=== PATIENT | female | born 1990 | race Caucasian/White ===

== ENCOUNTER 2018-02-10 15:33 | Outpatient (CLI) | payer SELFPAY ==
[2018-02-10 01:31] LABS: BASOPHILS 0.4 % (0-2); EOSINOPHILS 1.3 % (0-7); HEMOGLOBIN 9.6 g/dL (12-16); IMMATURE GRANULOCYTES 0.4 % (0-5); MCH 29.8 pg (26.0-34.0); MCHC 33.1 g/dL (31.0-37.0); MCV 90.1 fL (80.0-100.0); MONOCYTES 10.2 % (2-11); NEUTROPHILS 59.7 % (40-80); PLATELET COUNT 356 10x3/uL (130-400); RBC 3.22 10x6/uL (4.00-5.40); RDW 13.5 % (11.5-14.5)
[2018-02-10 01:57] LABS: UDS - AMPHET NEGATIVE QUAL (NEGATIVE); UDS - BARB NEGATIVE QUAL (NEGATIVE); UDS - BENZO NEGATIVE QUAL (NEGATIVE); UDS - COCAINE NEGATIVE QUAL (NEGATIVE); UDS - OPIATE NEGATIVE QUAL (NEGATIVE); UDS - PCP NEGATIVE QUAL (NEGATIVE); UDS - THC POSITIVE QUAL (NEGATIVE)
[2018-02-10 02:16] LABS: APPEARANCE CLEAR (CLEAR); BILIRUBIN NEGATIVE (NEGATIVE); COLOR YELLOW (YELLOW); GLUCOSE NEGATIVE (NEGATIVE); KETONE NEGATIVE (NEGATIVE); NITRITE NEGATIVE (NEGATIVE); PROTEIN NEGATIVE (NEGATIVE); UROBILINOGEN NORMAL (NORMAL)
[2018-02-10 02:17] LABS: BACTERIA NONE SEEN /hpf (NONE SEEN); EPITHELIAL CELLS 0-5 /hpf (0-5); RED CELLS - URINE 0-5 /hpf (0-5); WHITE CELLS - URINE NSEEN /hpf (0-5)
[2018-02-11 07:29] LABS: RAPID PLASMA REAGIN Non Reactive (Non Reactive)
[2018-02-11 11:20] LABS: HEPATITIS C ANTIBODY <0.1 (0.0-0.9)
[2018-02-11 17:12] LABS: RUBELLA IGG <0.90 index (Immune >0.99)
[2018-02-12 10:19] LABS: HGB SOLUBILITY (SICKLE SCREEN) Negative (Negative)
[2018-03-17 00:21] VITALS: BMI 26.9
== END 2018-02-10 16:00 ==
LOC: D.LDO 15:33 → D.LD 15:33 → D.LDO 16:00
PROVIDERS: Obstetrics & Gynecology
DX: O26.853 Spotting complicating pregnancy, third trimester (principal); Z3A.34 34 weeks gestation of pregnancy

== ENCOUNTER 2018-03-16 22:38 | Inpatient (IN) | payer MEDICAID ==
[~2018-03-16] VITALS: Ht 157.5 cm; Wt 66.7 kg
[2018-03-17 00:11] LABS: BASOPHILS 0.3 % (0-2); EOSINOPHILS 1.4 % (0-7); HEMATOCRIT 31.4 % (36.0-48.0); HEMOGLOBIN 10.3 g/dL (12-16); IMMATURE GRANULOCYTES 0.3 % (0-5); LYMPHOCYTES 16.7 % (15-50); MCH 28.4 pg (26.0-34.0); MCHC 32.8 g/dL (31.0-37.0); MCV 86.5 fL (80.0-100.0); MEAN PLATELET VOLUME 9.4 fL (7.4-10.4); MONOCYTES 5.4 % (2-11); NEUTROPHILS 75.9 % (40-80); PLATELET COUNT 422 10x3/uL (130-400); RBC 3.63 10x6/uL (4.00-5.40); RDW 14.1 % (11.5-14.5); WBC 13.6 10x3/uL (4.8-10.8)
[2018-03-17 00:18] LABS: APPEARANCE HAZY (CLEAR); BILIRUBIN NEGATIVE (NEGATIVE); COLOR YELLOW (YELLOW); GLUCOSE NEGATIVE (NEGATIVE); KETONE NEGATIVE (NEGATIVE); NITRITE NEGATIVE (NEGATIVE); PROTEIN NEGATIVE (NEGATIVE); SPECIFIC GRAVITY 1.015 (1.005-1.020); UROBILINOGEN NORMAL (NORMAL)
[2018-03-17 00:21] VITALS: BP 121/60; Ht 157.5 cm; Wt 66.7 kg
[2018-03-17 00:21] LABS: UDS - AMPHET NEGATIVE QUAL (NEGATIVE); UDS - BARB NEGATIVE QUAL (NEGATIVE); UDS - BENZO NEGATIVE QUAL (NEGATIVE); UDS - COCAINE NEGATIVE QUAL (NEGATIVE); UDS - OPIATE NEGATIVE QUAL (NEGATIVE); UDS - PCP NEGATIVE QUAL (NEGATIVE); UDS - THC POSITIVE QUAL (NEGATIVE)
[2018-03-17 00:23] LABS: HIV 1 & 2- RAPID SCREEN NEGATIVE (NEGATIVE)
[2018-03-17 00:24] LABS: BACTERIA MANY /hpf (NONE SEEN); EPITHELIAL CELLS 0-5 /hpf (0-5); MUCUS <1+ /lpf (NONE SEEN); RED CELLS - URINE 0-5 /hpf (0-5); WHITE CELLS - URINE 0-5 /hpf (0-5)
[2018-03-17 00:35] VITALS: BP 98/54
[2018-03-17 07:20] VITALS: BP 129/80
[2018-03-17 14:54] LABS: BASOPHILS 0.3 % (0-2); EOSINOPHILS 1.9 % (0-7); HEMATOCRIT 31.4 % (36.0-48.0); HEMOGLOBIN 10.2 g/dL (12-16); IMMATURE GRANULOCYTES 0.3 % (0-5); LYMPHOCYTES 20.3 % (15-50); MCH 28.7 pg (26.0-34.0); MCHC 32.5 g/dL (31.0-37.0); MCV 88.2 fL (80.0-100.0); MEAN PLATELET VOLUME 9.3 fL (7.4-10.4); MONOCYTES 7.6 % (2-11); NEUTROPHILS 69.6 % (40-80); PLATELET COUNT 401 10x3/uL (130-400); RBC 3.56 10x6/uL (4.00-5.40); RDW 14.1 % (11.5-14.5); WBC 12.5 10x3/uL (4.8-10.8)
[2018-03-17 19:29] VITALS: BP 116/64
[2018-03-18 07:32] LABS: RAPID PLASMA REAGIN Non Reactive (Non Reactive)
[2018-03-18 08:03] VITALS: BP 123/78
[2018-03-18 15:00] VITALS: BP 124/72
[2018-03-18 19:55] VITALS: BP 117/62
[2018-03-19 09:00] VITALS: BP 106/71
[2018-03-19] MEDS ORDERED: IBUPROFEN600 MG PO (13:54)
== END 2018-03-19 15:58 | disposition home or self-care (01) | DRG 775 ==
LOC: D.LDO 22:38 → D.LD 22:38 → D.LDO 22:59 → D.WS 22:59 → D.LD 03-17 02:40 → D.SDCHOLD 03-17 07:04 → D.LD 03-17 07:04 → D.WS 03-17 19:45
PROVIDERS: Obstetrics & Gynecology
PROC: 10907ZC Drainage of Amniotic Fluid, Therapeutic from Products of Conception, Via Natural or Artificial Opening (ICD-10-PCS; principal; 2018-03-16)
PROC: 10E0XZZ Delivery of Products of Conception, External Approach (ICD-10-PCS; 2018-03-16)
DX: O99.334 Smoking (tobacco) complicating childbirth (principal); Z3A.38 38 weeks gestation of pregnancy; Z37.0 Single live birth; O34.219 Maternal care for unspecified type scar from previous cesarean delivery

== ENCOUNTER 2018-05-14 05:45 | Day surgery (SDC) | payer MEDICAID ==
[2018-05-12 16:00] LABS: BASOPHILS 0.7 % (0-2); EOSINOPHILS 5.8 % (0-7); HEMATOCRIT 46.9 % (36.0-48.0); HEMOGLOBIN 15.7 g/dL (12-16); IMMATURE GRANULOCYTES 0.2 % (0-5); LYMPHOCYTES 32.1 % (15-50); MCH 28.2 pg (26.0-34.0); MCHC 33.5 g/dL (31.0-37.0); MCV 84.2 fL (80.0-100.0); MEAN PLATELET VOLUME 8.7 fL (7.4-10.4); MONOCYTES 7.2 % (2-11); PLATELET COUNT 302 10x3/uL (130-400); RBC 5.57 10x6/uL (4.00-5.40); RDW 15.1 % (11.5-14.5); WBC 9.3 10x3/uL (4.8-10.8)
[~2018-05-14] VITALS: Ht 157.5 cm; Wt 63.0 kg
--- NOTE | ~2018-05-14 | OP ---
PATIENT NAME: MARCELLUS LOPEZ MEDICAL RECORD: [id number] :86 [facility] DATE: SURGEON: DONTA AMADOR MD DATE OF OPERATION: 05/14/2018 PREOPERATIVE DIAGNOSES: Multiparity, patient desires permanent sterility. POSTOPERATIVE DIAGNOSIS: Multiparity, patient desires permanent sterility as well as evidence of previous pelvic infection and left adnexal adhesions. PROCEDURE: Laparoscopic tubal ligation via bipolar cautery. SURGEON: Donta Amador MD ANESTHESIA: General endotracheal. INTRAVENOUS FLUIDS: Per anesthesia record. SPECIMENS: None. COMPLICATIONS: None. 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 COMPLICATIONS: None apparent. PROCEDURE: The patient was taken to the operating room where general anesthesia was achieved without difficulty. The patient was then prepped and draped in normal sterile fashion in the dorsal lithotomy position in the [facility]. At this point, the bladder was drained of approximately 100 cc of clear straw colored urine. A sponge stick was placed into the vagina for uterine elevation. Attention was then turned to the umbilicus where a 5-mm incision was made in the inferior aspect. At this point, a 5-mm bladeless trocar was used to enter the intraperitoneal space under direct visualization of laparoscope. The patient was then insufflated upon entry and opening pressure was found to be less than 10 mmHg. Following placement of the infraumbilical port, a second port site was made approximately 5 cm above the pubic symphysis in the midline. A 5-mm incision was made at that area and a second 5-mm bladeless trocar was then used to enter the intraperitoneal space under direct visualization of the laparoscope. Attention was then turned to the left adnexa, where a few adhesions were taken down involving the left fallopian tube and left pelvic side wall. At that point, the Gyrus bipolar cautery was then used to fully desiccate the midportion of each tube approximately 5-6 cm. Good hemostasis was noted. Survey of the abdomen and pelvis was performed. The instruments were then removed. The patient was desufflated and then the trocars were removed. The patient tolerated procedure well. The incisions were repaired with 3-0 Monocryl in an interrupted fashion. The patient was instructed to follow up in 1 week for suture removal. The patient tolerated procedure well, transferred to postanesthesia recovery stable without incident. TRANSINT:[id number] Voice Confirmation ID: [id number] DOCUMENT ID: [id number] OPERATIVE REPORT [id number] MARCELLUS LOPEZ MICHAEL W MD at 1304 CC: [id number] DICTATION DATE: 05/23/18604 BOTTLER HELPER: 05/23/1830 [facility] 05/14/[address] [address]
[~2018-05-14 05:45] MED LIST: IBUPROFEN600 MG PO
[2018-05-14 06:21] VITALS: BP 101/63; BMI 25.5
[2018-05-14 06:37] VITALS: Ht 157.5 cm; Wt 63.0 kg
[2018-05-14 06:44] LABS: HCG URINE NEGATIVE (NEGATIVE)
== END 2018-05-14 11:10 | disposition home or self-care (01) ==
LOC: D.OPS 05:45 → D.PAN 07:30 → D.OPS 07:30
PROVIDERS: Obstetrics & Gynecology
DX: Z30.2 Encounter for sterilization (principal); Z30.09 Encounter for other general counseling and advice on contraception; Z72.0 Tobacco use; F12.90 Cannabis use, unspecified, uncomplicated

== ENCOUNTER 2018-05-17 13:30 | Emergency (ER) | payer MEDICAID ==
[~2018-05-17] VITALS: Ht 157.5 cm; Wt 63.2 kg
[2018-05-17 14:06] VITALS: Ht 157.5 cm; Wt 63.2 kg
[2018-05-17] MEDS ORDERED: IBUPROFEN600 MG PO (14:09)
[2018-05-17] MEDS ORDERED: HYDROCODON-ACE1 EAC7 PO (14:09)
[2018-05-17] MEDS ORDERED: VIBRAMYCIN 100100 MG PO (15:41)
[2018-05-17] MEDS ORDERED: VOLTAREN75 MG PO (15:41)
[2018-05-17 16:20] VITALS: BP 108/70
== END 2018-05-17 16:21 | disposition home or self-care (01) ==
LOC: D.ER 13:30
DX: L03.213 Periorbital cellulitis (principal); F17.200 Nicotine dependence, unspecified, uncomplicated

== ENCOUNTER 2018-09-03 16:26 | Emergency (ER) | payer MEDICAID ==
[~2018-09-03] VITALS: Ht 157.5 cm; Wt 56.8 kg
[~2018-09-03 16:26] MED LIST changes: +HYDROCODON-ACE1 EAC7 PO; +VIBRAMYCIN 100100 MG PO; +VOLTAREN75 MG PO
[2018-09-03 16:44] VITALS: BP 106/66; Ht 157.5 cm; Wt 56.8 kg
[2018-09-03 17:05] LABS: BASOPHILS 0.7 % (0-2); EOSINOPHILS 3.7 % (0-7); HEMATOCRIT 38.1 % (36.0-48.0); HEMOGLOBIN 12.2 g/dL (12-16); IMMATURE GRANULOCYTES 0.2 % (0-5); MCH 27.7 pg (26.0-34.0); MCV 86.6 fL (80.0-100.0); MEAN PLATELET VOLUME 8.6 fL (7.4-10.4); MONOCYTES 7.4 % (2-11); RDW 14.5 % (11.5-14.5); WBC 8.3 10x3/uL (4.8-10.8)
[2018-09-03 17:08] LABS: PLATELET COUNT 464 10x3/uL (130-400)
[2018-09-03 17:21] LABS: ALBUMIN 3.3 g/dL (3.4-5.0); ALKALINE PHOSPHATASE 72 U/L (46-116); ALT (SGPT) 18 U/L (10-68); AMYLASE - SERUM 38 U/L (25-115); BILIRUBIN - TOTAL 0.21 mg/dL (0.2-1.3); CALC OSMOLALITY 281 mosm/kg (275-300); CALCIUM 8.6 mg/dL (8.5-10.1); CARBON DIOXIDE 30.7 mmol/L (21.0-32.0); CHLORIDE - SERUM 105 mmol/L (98-107); CREATININE - SERUM 0.7 mg/dL (0.6-1.3); GLUCOSE 82 mg/dL (74-106); LIPASE 90 U/L (73-393); POTASSIUM - SERUM 4.2 mmol/L (3.5-5.1); PROTEIN - SERUM 7.6 g/dL (6.4-8.2); SODIUM 142 mmol/L (136-145); UREA NITROGEN 13 mg/dL (7-18); eGFR NON AFRICAN AMERICAN > 90 mL/min (90-120)
[2018-09-03 17:27] LABS: APPEARANCE CLEAR (CLEAR); COLOR YELLOW (YELLOW); SPECIFIC GRAVITY 1.015 (1.005-1.020)
[2018-09-03 17:28] LABS: BILIRUBIN NEGATIVE (NEGATIVE); EPITHELIAL CELLS 0-5 /hpf (0-5); GLUCOSE NEGATIVE (NEGATIVE); KETONE NEGATIVE (NEGATIVE); NITRITE NEGATIVE (NEGATIVE); PROTEIN TRACE mg/dL (NEGATIVE); RED CELLS - URINE 0-5 /hpf (0-5); UROBILINOGEN NORMAL (NORMAL); WHITE CELLS - URINE 0-5 /hpf (0-5)
[2018-09-03 17:34] LABS: HCG SERUM NEGATIVE (NEGATIVE)
[2018-09-03] MEDS ORDERED: PERMETHRIN60 GM TOPICAL (20:21)
[2018-09-03] MEDS ORDERED: PREDNISONE20 MG PO (20:21)
[2018-09-05 22:07] LABS: CHLAMYDIA TRACHOMATIS, NAA Negative (Negative)
== END 2018-09-10 23:01 | disposition home or self-care (01) ==
LOC: D.ER 16:26
PROVIDERS: Family Medicine
DX: N89.8 Other specified noninflammatory disorders of vagina (principal); L29.9 Pruritus, unspecified; R10.2 Pelvic and perineal pain; F17.200 Nicotine dependence, unspecified, uncomplicated

== ENCOUNTER 2018-11-18 16:49 | Emergency (ER) | payer MEDICAID ==
[~2018-11-18] VITALS: Ht 157.5 cm; Wt 59.1 kg
[~2018-11-18 16:49] MED LIST changes: +PERMETHRIN60 GM TOPICAL; +PREDNISONE20 MG PO
[2018-11-18 16:58] VITALS: Ht 157.5 cm; Wt 59.1 kg
[2018-11-18] MEDS ORDERED: ZOVIRAX800 MG PO (19:57)
[2018-11-18 21:15] LABS: APPEARANCE CLEAR (CLEAR); BILIRUBIN NEGATIVE (NEGATIVE); COLOR YELLOW (YELLOW); GLUCOSE NEGATIVE (NEGATIVE); KETONE NEGATIVE (NEGATIVE); NITRITE NEGATIVE (NEGATIVE); PROTEIN NEGATIVE (NEGATIVE); UROBILINOGEN NORMAL (NORMAL)
[2018-11-18 21:57] VITALS: BP 127/85
== END 2018-11-18 21:58 | disposition home or self-care (01) ==
LOC: D.ER 16:49
PROVIDERS: Obstetrics & Gynecology
DX: A60.04 Herpesviral vulvovaginitis (principal); Z20.2 Contact with and (suspected) exposure to infections with a predominantly sexual mode of transmission; F17.200 Nicotine dependence, unspecified, uncomplicated

== ENCOUNTER 2021-04-13 20:16 | Inpatient (IN) | payer MEDICAID ==
[~2021-04-13] VITALS: Ht 157.5 cm; Wt 60.5 kg
[~2021-04-13 20:16] MED LIST changes: +ZOVIRAX800 MG PO
[2021-04-13 23:19] LABS: BASOPHILS 0.6 % (0-2); EOSINOPHILS 0.3 % (0-7); HEMATOCRIT 34.1 % (36.0-48.0); HEMOGLOBIN 10.9 g/dL (12-16); LYMPHOCYTES 13.6 % (15-50); MCH 25.9 pg (26.0-34.0); MCV 80.7 fL (80.0-100.0); MEAN PLATELET VOLUME 6.4 fL (7.4-10.4); MONOCYTES 4.9 % (2-11); NEUTROPHILS 80.6 % (40-80); PLATELET COUNT 471 10x3/uL (130-400); RBC 4.22 10x6/uL (4.00-5.40); RDW 15.6 % (11.5-14.5)
[2021-04-13 23:23] LABS: APTT 31.6 SECONDS (22.8-39.4); INR 1.14 (0.85-1.17); PROTIME 13.5 SECONDS (11.6-15.0)
[2021-04-13 23:32] LABS: ALBUMIN 3.3 g/dL (3.4-5.0); ALKALINE PHOSPHATASE 69 U/L (30-120); ALT (SGPT) 51 U/L (10-68); BILIRUBIN - TOTAL 0.41 mg/dL (0.2-1.3); CALCIUM 8.2 mg/dL (8.5-10.1); CARBON DIOXIDE 28.2 mmol/L (21.0-32.0); CREATININE - SERUM 0.6 mg/dL (0.6-1.3); GLUCOSE 111 mg/dL (74-106); UREA NITROGEN 11 mg/dL (7-18); eGFR NON AFRICAN AMERICAN > 90 mL/min (90-120)
--- NOTE | 2021-04-13 23:35 | NUR ---
PT AROUSES TO VOICE, C/O HEAD PAIN WORSENING WITH SOUND AND LIGHT. PT DENIES PAIN ANYWHERE ELSE. AAO X3, ABLE TO ANSWER QUESTIONS APPROPRIATELY.
[2021-04-13 23:56] LABS: CALC OSMOLALITY 277 mosm/kg (275-300); CHLORIDE - SERUM 106 mmol/L (98-107); POTASSIUM - SERUM 3.3 mmol/L (3.5-5.1); PROTEIN - SERUM 7.7 g/dL (6.4-8.2); SODIUM 139 mmol/L (136-145)
[2021-04-14] VITALS (10 sets, daily range): BP systolic 96–139; BP diastolic 52–88; Ht 157.5 cm; Wt 60.5 kg
--- NOTE | 2021-04-14 | NUR ---
TRAUMA BAND [id number]
[2021-04-14 01:56] LABS: BACTERIA MOD HPF (<MOD); BILIRUBIN NEGATIVE (NEGATIVE); KETONE NEGATIVE mg/dL (< 1+); NITRITE POSITIVE (NEGATIVE); SQUAMOUS EPITHELIAL 1 HPF (0-4); UROBILINOGEN NORMAL mg/dL (< 2); WHITE CELLS - URINE <1 HPF (0-4)
[2021-04-14 01:58] LABS: HCG URINE NEGATIVE (NEGATIVE)
[2021-04-14 02:22] LABS: UDS - AMPHET POSITIVE QUAL (NEGATIVE); UDS - BARB NEGATIVE QUAL (NEGATIVE); UDS - BENZO NEGATIVE QUAL (NEGATIVE); UDS - COCAINE NEGATIVE QUAL (NEGATIVE); UDS - OPIATE NEGATIVE QUAL (NEGATIVE); UDS - PCP NEGATIVE QUAL (NEGATIVE); UDS - THC POSITIVE QUAL (NEGATIVE)
--- NOTE | 2021-04-14 05:23 | NUR ---
PT RESPIRATIONS EVEN AND NON LABORED. AROUSES TO VERBAL STIMULI. DENIES CURRENT NEEDS AT THIS TIME.
[2021-04-14 05:46] LABS: BASOPHILS 0.5 % (0-2); EOSINOPHILS 0 % (0-7); HEMATOCRIT 34.9 % (36.0-48.0); HEMOGLOBIN 11.4 g/dL (12-16); LYMPHOCYTES 9.2 % (15-50); MCH 26.3 pg (26.0-34.0); MCHC 32.8 g/dL (31.0-37.0); MCV 80.3 fL (80.0-100.0); MEAN PLATELET VOLUME 6.7 fL (7.4-10.4); MONOCYTES 1.6 % (2-11); NEUTROPHILS 88.7 % (40-80); PLATELET COUNT 432 10x3/uL (130-400); RBC 4.35 10x6/uL (4.00-5.40); WBC 10.5 10x3/uL (4.8-10.8)
[2021-04-14 05:53] LABS: INR 1.1 (0.85-1.17); PROTIME 13.1 SECONDS (11.6-15.0)
[2021-04-14 05:54] LABS: % SATURATION 8 % (15-55); IRON 32 ug/dl (35-150); TOTAL IRON BIND CAPACITY 390 ug/dl (260-445); UNSAT IRON BIND CAPACITY 358 ug/dl (150-375)
[2021-04-14 06:33] LABS: CALC OSMOLALITY 277 mosm/kg (275-300); CALCIUM 8.4 mg/dL (8.5-10.1); CARBON DIOXIDE 24.9 mmol/L (21.0-32.0); CHLORIDE - SERUM 105 mmol/L (98-107); CKMB 0.1 U/L (0.0-3.6); CREATINE KINASE 52 UL (21-215); CREATININE - SERUM 0.5 mg/dL (0.6-1.3); FERRITIN 24 ng/mL (3-244); GLUCOSE 129 mg/dL (74-106); SODIUM 138 mmol/L (136-145); UREA NITROGEN 12 mg/dL (7-18); eGFR NON AFRICAN AMERICAN > 90 mL/min (90-120)
--- NOTE | 2021-04-14 07:00 | NUR ---
0700: RECEIVED REPORT FROM LITO Matias. PT A&O AT THIS TIME, C/O HEAD ACHE, DENIES N/V. PT REPORTS UNSURE IF SHE CAN WALK. PT DENIES WANTING TO BE MADE CONFIDENTIAL IN THE SYSTEM. 07: CALLED REPORT, SPOKE WITH LITO MATIAS. PT TO GO TO ROOM 2228. 0720: PT TAKEN UP TO ROOM BY THIS RN. PT A&OX3, GCS 15, RR EVEN & UNLABORED. AGNIESZKA RN AT BEDSIDE FOR PT TRANSFER. INFORMED RN OF PTS PAIN. ALL BELONGINGS PLACED AT PTS BEDSIDE: PURSE, BOOTS, WHITE PLASTIC GROCERY BG WITH FOOD AND DRINKS, AND A BLACK OVER THE SHOULDER CLOTH PERSONAL BAG WITH PERSONAL ITEMS. CHART GIVEN TO [facility] [employer].
--- NOTE | 2021-04-14 08:16 | NUR ---
PATIENT TO UNIT VIA STRETCHER. VERY SLEEPY. FALL PRECAUTIONS IN PLACE. IV SALINE LOCKED. CALL LIGHT IN REACH. BED LOW POSITION. WILL CONTINUE TO MONITOR.
--- NOTE | 2021-04-14 23:30 | NUR ---
I have reviewed this patient and I concur with the Shift Assessment completed by the Licensed Practical Nurse today this shift.
[2021-04-15] VITALS: BP 113/57
[2021-04-15 04:00] VITALS: BP 101/59
[2021-04-15 06:18] LABS: BASOPHILS 0.2 % (0-2); EOSINOPHILS 0 % (0-7); HEMATOCRIT 32.6 % (36.0-48.0); HEMOGLOBIN 10.6 g/dL (12-16); LYMPHOCYTES 13.5 % (15-50); MCH 26.4 pg (26.0-34.0); MCHC 32.6 g/dL (31.0-37.0); MCV 80.9 fL (80.0-100.0); MEAN PLATELET VOLUME 6.7 fL (7.4-10.4); MONOCYTES 4.3 % (2-11); PLATELET COUNT 499 10x3/uL (130-400); RBC 4.03 10x6/uL (4.00-5.40); RDW 15.9 % (11.5-14.5); WBC 9.8 10x3/uL (4.8-10.8)
[2021-04-15 06:22] LABS: ALBUMIN 3.2 g/dL (3.4-5.0); ALKALINE PHOSPHATASE 70 U/L (30-120); ALT (SGPT) 40 U/L (10-68); BILIRUBIN - TOTAL 0.31 mg/dL (0.2-1.3); CALC OSMOLALITY 279 mosm/kg (275-300); CALCIUM 8.5 mg/dL (8.5-10.1); CARBON DIOXIDE 29.2 mmol/L (21.0-32.0); CHLORIDE - SERUM 106 mmol/L (98-107); CREATININE - SERUM 0.5 mg/dL (0.6-1.3); GLUCOSE 127 mg/dL (74-106); POTASSIUM - SERUM 3.9 mmol/L (3.5-5.1); PROTEIN - SERUM 7.8 g/dL (6.4-8.2); SODIUM 140 mmol/L (136-145); UREA NITROGEN 11 mg/dL (7-18); eGFR NON AFRICAN AMERICAN > 90 mL/min (90-120)
--- NOTE | 2021-04-15 07:34 | NUR ---
IN BED SLEEPING. BED LOW POSITION, CALL LIGHT IN REACH. WILL CONTINUE TO MONITOR.
[2021-04-15 08:27] VITALS: BP 121/57
[2021-04-15 13:02] VITALS: BP 101/53
--- NOTE | 2021-04-15 15:14 | NUR ---
IN BED RESTING. AROUSES TO VOICE. DENIES NEEDS AT THIS TIME. BED LOW POSITION, CALL LIGHT IN REACH. WILL CONTINUE TO MONITOR.
[2021-04-15 17:27] VITALS: BP 111/58
[2021-04-15 20:00] VITALS: BP 99/55
--- NOTE | 2021-04-15 21:49 | NUR ---
RESTING QUEITLY WITH NO DISTRESS NOTED. RESP UNLABORED. NO COMPLAINTS VOICED. NEURO CHECKS REMAIN WITHING NORMAL LIMITS. CL IN REACH
[2021-04-16] VITALS: BP 91/47
--- NOTE | 2021-04-16 02:08 | NUR ---
I have reviewed this patient and I concur with the Shift Assessment completed by the Licensed Practical Nurse today this shift.
[2021-04-16 04:00] VITALS: BP 99/50
[2021-04-16 06:12] LABS: BASOPHILS 0.1 % (0-2); EOSINOPHILS 0 % (0-7); HEMATOCRIT 34.4 % (36.0-48.0); HEMOGLOBIN 10.9 g/dL (12-16); LYMPHOCYTES 16.1 % (15-50); MCH 25.9 pg (26.0-34.0); MCHC 31.9 g/dL (31.0-37.0); MCV 81.3 fL (80.0-100.0); MEAN PLATELET VOLUME 7.2 fL (7.4-10.4); MONOCYTES 5.9 % (2-11); NEUTROPHILS 77.9 % (40-80); PLATELET COUNT 490 10x3/uL (130-400); RBC 4.22 10x6/uL (4.00-5.40); RDW 16.2 % (11.5-14.5); WBC 9.3 10x3/uL (4.8-10.8)
[2021-04-16 07:07] LABS: ALBUMIN 3.1 g/dL (3.4-5.0); ALKALINE PHOSPHATASE 63 U/L (30-120); ALT (SGPT) 35 U/L (10-68); CALCIUM 8.5 mg/dL (8.5-10.1); CARBON DIOXIDE 27.4 mmol/L (21.0-32.0); CHLORIDE - SERUM 104 mmol/L (98-107); CREATININE - SERUM 0.6 mg/dL (0.6-1.3); GLUCOSE 105 mg/dL (74-106); MAGNESIUM - SERUM 1.9 mg/dL (1.8-2.4); PROTEIN - SERUM 7.2 g/dL (6.4-8.2); SODIUM 140 mmol/L (136-145); eGFR NON AFRICAN AMERICAN > 90 mL/min (90-120)
[2021-04-16 07:09] LABS: CALC OSMOLALITY 280 mosm/kg (275-300); POTASSIUM - SERUM 4.5 mmol/L (3.5-5.1); UREA NITROGEN 19 mg/dL (7-18)
[2021-04-16 09:25] VITALS: BP 101/54
--- NOTE | 2021-04-16 09:30 | NUR ---
PATIENT C/O HORRIBLE HEDACHE, ADMINISTERED PRN TYLENOL, PATIENT INQUIRED ON DC STATES THAT SHE CAN NOT STAY IN THE HOSPITAL THAT SHE HAS A PHOBIA DUE TO BAD EXPERIENCES. NO OTHER NEEDS AT THIS TIME CONTINUE WITH PLAN OF CARE
[2021-04-16] MEDS ORDERED: MEDROL DOSE PACK4 MG PO (11:29)
[2021-04-16 12:45] VITALS: BP 100/52
--- NOTE | 2021-04-16 12:50 | NUR ---
I have reviewed this patient and I concur with the Shift Assessment completed by the Licensed Practical Nurse today this shift.
--- NOTE | 2021-04-16 13:01 | MORECARE ---
CASE MANAGEMENT DISCHARGE SUMMARY PATIENT: MARCELLUS LOPEZ UNIT: [id number] ADM DATE: 04/13/21 AGE: 30 : 88 SEX: F ROOM/BED: D.2224 AUTHOR: LENNIEDOC PHYSICIAN: REFERRING PHYSICIAN: BRANT ALMANZA DO DATE OF SERVICE: 04/16/21 Case Management Discharge Planning Summary DCP REVIEW SUMMARY ANTICIPATED D/C DATE: EXPECTED LOS : CASE STATUS: DCP Initiated INITIAL REVIEW: 04/14/2021 INITIAL REVIEWER: Jackie Montes FINAL DISCHARGE DISPOSITION: : FINAL REVIEWER: FINAL REVIEW DATE: DCP Focus Questions & Answers DCP Screen QUESTION: ANSWER High Risk Factors: : Poor social support DCP Evaluation QUESTION: ANSWER Patient's ability to cope with chronic illness : d. No chronic illness Would patient like to participate in any Care Coordination programs (if applicable): : Not applicable Mental health screen: : No mental health history DCP Re-evaluation QUESTION: ANSWER Would patient like to participate in any Care Coordination programs (if applicable): : Not applicable PATIENT: MARCELLUS LOPEZ ENCOUNTER: [id number] MEDICAL RECORD#: [id number] ADMISSION DATE: 04/13/2021 DISCHARGE DATE: ATTENDING MD: BRANT ALFORD : AGE: 30 MARITAL STATUS: M DC PLAN ID: [id number] FACILITY: [facility] PRINTED ON: 04/16/21 13:01 CT All edits/amendments must be made on the electronic document DICTATION DATE: 04/16/21 1301 SURGICAL APPLIANCES SALESPERSON: JESSICA 04/16/21 1301 RPT#: [id number] DC DATE: STATUS: ADM IN [facility] [address] [place] [address] END OF REPORT
--- NOTE | 2021-04-16 13:04 | NUR ---
PATIENT DC HOME, WENT OVER DC PAPERWORK AND FOLLOW UP APPOINTMENTS WITH PATIENT, SHE STATED SHE IS HOMELESS AND LIVING IN THE [facility], OFFERED TO GET CASE MANAGEMENT TO POSSIBLY HELP PATIENT, SHE DECLINED ASSISTANCE AND STATED " I JUST WANT TO GET TO MY DOG" IV DC WITH CATHETER INTACT.
--- NOTE | 2021-04-16 13:12 | MORECARE ---
CASE MANAGEMENT DISCHARGE SUMMARY PATIENT: MARCELLUS LOPEZ UNIT: [id number] ADM DATE: 04/13/21 AGE: 30 : 88 SEX: F ROOM/BED: D.2224 AUTHOR: PAKO HOGUE PHYSICIAN: REFERRING PHYSICIAN: BRANT ALMANZA DO DATE OF SERVICE: 04/16/21 Case Management Discharge Planning Summary COMMENTS ENTERED DATE: 04/16/21 13:11 CT COMMENT TYPE: Discharge Planning REVIEWER: Jackie Jyoti When I went back in the room, patient has already left. ENTERED DATE: 04/16/21 12:58 CT COMMENT TYPE: Discharge Planning REVIEWER: Jackiepat Montes CM met with patient at bedside after obtaining verbal consent. CM discussed availability / needs of home health, REHAB and medical equipment. Patient states she does not have insurance and may need help getting her meds. She uses [facility] for pharmacy. I have set her up with [facility] for an appointment May 01 at 2:47 pm and their services are based on income and they have a medication program. Patient is ready to dc so she can check on her dog. CM to follow and assist as needed. DCP REVIEW SUMMARY ANTICIPATED D/C DATE: EXPECTED LOS : CASE STATUS: DCP Initiated INITIAL REVIEW: 04/14/2021 INITIAL REVIEWER: Jackie Montes FINAL DISCHARGE DISPOSITION: : FINAL REVIEWER: FINAL REVIEW DATE: DCP Focus Questions & Answers DCP Screen QUESTION: ANSWER High Risk Factors: : Poor social support DCP Evaluation QUESTION: ANSWER Patient's ability to cope with chronic illness : d. No chronic illness Would patient like to participate in any Care Coordination programs (if applicable): : Not applicable Mental health screen: : No mental health history DCP Re-evaluation QUESTION: ANSWER Would patient like to participate in any Care Coordination programs (if applicable): : Not applicable PATIENT: MARCELLUS LOPEZ ENCOUNTER: [id number] MEDICAL RECORD#: [id number] ADMISSION DATE: 04/13/2021 DISCHARGE DATE: ATTENDING MD: BRANT ALFORD : AGE: 30 MARITAL STATUS: M DC PLAN ID: [id number] FACILITY: [facility] PRINTED ON: 04/16/21 13:12 CT All edits/amendments must be made on the electronic document DICTATION DATE: 04/16/211311 ADJUNCT TEACHER: JESSICA 04/16/211311 RPT#: [id number] DC DATE: STATUS: ADM IN [facility] [address] [place] [address] END OF REPORT
--- NOTE | 2021-04-16 13:25 | MORECARE ---
CASE MANAGEMENT DISCHARGE SUMMARY PATIENT: MARCELLUS LOPEZ UNIT: [id number] ADM DATE: 04/13/21 AGE: 30 : 88 SEX: F ROOM/BED: D.2224 AUTHOR: PAKO HOGUE PHYSICIAN: REFERRING PHYSICIAN: BRANT ALMANZA DO DATE OF SERVICE: 04/16/21 Case Management Discharge Planning Summary COMMENTS ENTERED DATE: 04/16/21 13:11 CT COMMENT TYPE: Discharge Planning REVIEWER: Jackie Jyoti When I went back in the room, patient has already left. ENTERED DATE: 04/16/21 12:58 CT COMMENT TYPE: Discharge Planning REVIEWER: Jackiepat Montes CM met with patient at bedside after obtaining verbal consent. CM discussed availability / needs of home health, REHAB and medical equipment. Patient states she does not have insurance and may need help getting her meds. She uses [facility] for pharmacy. I have set her up with [facility] for an appointment May 01 at 2:47 pm and their services are based on income and they have a medication program. Patient is ready to dc so she can check on her dog. CM to follow and assist as needed. DCP REVIEW SUMMARY ANTICIPATED D/C DATE: EXPECTED LOS : CASE STATUS: DCP Initiated INITIAL REVIEW: 04/14/2021 INITIAL REVIEWER: Jackie Montes FINAL DISCHARGE DISPOSITION: : FINAL REVIEWER: FINAL REVIEW DATE: DCP Focus Questions & Answers DCP Screen QUESTION: ANSWER High Risk Factors: : Poor social support DCP Evaluation QUESTION: ANSWER Patient's ability to cope with chronic illness : d. No chronic illness Would patient like to participate in any Care Coordination programs (if applicable): : Not applicable Mental health screen: : No mental health history DCP Re-evaluation QUESTION: ANSWER Would patient like to participate in any Care Coordination programs (if applicable): : Not applicable PATIENT: MARCELLUS LOPEZ ENCOUNTER: [id number] MEDICAL RECORD#: [id number] ADMISSION DATE: 04/13/2021 DISCHARGE DATE: 04/16/2021 ATTENDING MD: BRANT ALFORD : AGE: 30 MARITAL STATUS: M DC PLAN ID: [id number] FACILITY: [facility] PRINTED ON: 04/16/21 13:25 CT All edits/amendments must be made on the electronic document DICTATION DATE: 04/16/21 132 SSIS ARCHITECT: JESSICA 04/16/21 1325 RPT#: [id number] DC DATE:04/16/21 STATUS: DIS IN [facility] [address] [place] [address] END OF REPORT
--- NOTE | 2021-04-16 14:46 | MORECARE ---
CASE MANAGEMENT DISCHARGE SUMMARY PATIENT: MARCELLUS LOPEZ UNIT: [id number] ADM DATE: 04/13/21 AGE: 30 : 86 SEX: F ROOM/BED: D.2224 AUTHOR: PAKO HOGUE PHYSICIAN: REFERRING PHYSICIAN: BRANT ALMANZA DO DATE OF SERVICE: 04/16/21 Case Management Discharge Planning Summary COMMENTS ENTERED DATE: 04/16/21 13:11 CT COMMENT TYPE: Discharge Planning REVIEWER: Jackie Jyoti When I went back in the room, patient has already left. ENTERED DATE: 04/16/21 12:58 CT COMMENT TYPE: Discharge Planning REVIEWER: Jackiepat Montes CM met with patient at bedside after obtaining verbal consent. CM discussed availability / needs of home health, REHAB and medical equipment. Patient states she does not have insurance and may need help getting her meds. She uses [facility] for pharmacy. I have set her up with [facility] for an appointment May 01 at 2:47 pm and their services are based on income and they have a medication program. Patient is ready to dc so she can check on her dog. CM to follow and assist as needed. DCP REVIEW SUMMARY ANTICIPATED D/C DATE: EXPECTED LOS : CASE STATUS: DCP Initiated INITIAL REVIEW: 04/14/2021 INITIAL REVIEWER: Jackie Montes FINAL DISCHARGE DISPOSITION: : FINAL REVIEWER: FINAL REVIEW DATE: DCP Focus Questions & Answers DCP Screen QUESTION: ANSWER High Risk Factors: : Poor social support DCP Evaluation QUESTION: ANSWER Patient's ability to cope with chronic illness : d. No chronic illness Would patient like to participate in any Care Coordination programs (if applicable): : Not applicable Mental health screen: : No mental health history DCP Re-evaluation QUESTION: ANSWER Would patient like to participate in any Care Coordination programs (if applicable): : Not applicable PATIENT: MARCELLUS LOPEZ ENCOUNTER: [id number] MEDICAL RECORD#: [id number] ADMISSION DATE: 04/13/2021 DISCHARGE DATE: 04/16/2021 ATTENDING MD: BRANT ALFORD : AGE: 30 MARITAL STATUS: M DC PLAN ID: [id number] FACILITY: [facility] PRINTED ON: 04/16/21 14:46 CT All edits/amendments must be made on the electronic document DICTATION DATE: 04/16/211445 RN PRACTITIONER: JESSICA 04/16/211445 RPT#: [id number] DC DATE:04/16/21 STATUS: DIS IN [facility] [address] [place] [address] END OF REPORT
== END 2021-04-16 13:19 | disposition home or self-care (01) | DRG 87 ==
LOC: D.ER 20:16 → D.EDHOLD 23:42 → D.MS 23:42
PROVIDERS: Emergency Medicine; ADMIT Family Medicine; ATTEND Family Medicine
DX: S06.6X0A Traumatic subarachnoid hemorrhage without loss of consciousness, initial encounter (principal); W50.0XXA Accidental hit or strike by another person, initial encounter; D64.9 Anemia, unspecified; E87.6 Hypokalemia; F15.90 Other stimulant use, unspecified, uncomplicated; F12.90 Cannabis use, unspecified, uncomplicated; S02.119A Unspecified fracture of occiput, initial encounter for closed fracture